=== PATIENT | female | born 1985 | race Caucasian/White ===

== ENCOUNTER 2025-04-20 06:59 | Day surgery (SDC) | payer BC ==
[~2025-04-20 06:59] MED LIST: EPINEPHrine 1 MG/ML SDV ONE; Sodium Chloride 0.9% 10 ML Syringe FLUSH PRN; Sodium Chloride 0.9% 10 ML Syringe FLUSH SCH
[2025-04-20] MEDS ORDERED: Propofol 200 MG/20 ML SDV ONE ×2 (07:06→08:15)
[2025-04-20] MEDS ORDERED: fentaNYL 100 MCG/2 ML SDV ONE (07:06)
[2025-04-20] MEDS ORDERED: Midazolam 1 MG/ML 2 ML SDV ONE (07:07)
[2025-04-20] MEDS ORDERED: Ondansetron 4 MG/2 ML SDV ONE (07:08)
[2025-04-20] MEDS: Lactated Ringers 1,000 ML IV SCH (07:35)
[2025-04-20] MEDS ORDERED: Ketamine HCL/NACL, ISO-OSM 50 MG/5 ML Syringe ONE (08:11)
[2025-04-20] MEDS ORDERED: Glycopyrrolate 0.2 MG/ML 2 ML SDV ONE (08:16)
[2025-04-20] MEDS ORDERED: Ketorolac 30 MG/ML SDV IVPUSH ONE (09:00)
== END 2025-04-20 09:15 | disposition home or self-care (01) ==
LOC: JD.SDS 06:59
PROVIDERS: ATTEND Surgery
DX: L72.0 Epidermal cyst (principal)
CPT/HCPCS: 11403; 81025; J0171; J0665; J1596; J2003; J2250; J2405; J2704; J3010; J7120; 00400; J3490